=== PATIENT | male | born 1960 | race Hispanic/Latino ===

== ENCOUNTER 2025-05-18 03:56 | Emergency (ER) | payer OTHER ==
[~2025-05-18] VITALS: Ht 188 cm; Wt 211.8 kg
[2025-05-18 04:10] VITALS: BP 160/55; PULSE 88; RESP 14; TEMP 97.6; O2SAT 97
--- NOTE | 2025-05-18 04:41 | ERN ---
General Chief Complaint: Other Problems Stated Complaint: C/O "STOMACH LEAKING FLUID" Time Seen by MD: 04:14 History of Present Illness Initial Comments 64-year-old male who comes in today with a history of atrial fibrillation, hypertension, morbid obesity as he weighs 211 kilos in his BMI 60 comes in with fluid leakage from the abdominal wall. He describes waking him to witnessed in his bed without odor or urine smelling reports he has a occurred before. He acknowledges recent weight gain and increased water intake over 64 oz per day emotional stress related to family circumstances and poor dietary adherence with the past month although he has recently resumed swimming in the mid some dietary changes. No overt signs of infection though he has noted progressive shortness of breath with exertion to which she attributes to deconditioning and body habitus. She has no chest pain fever and new neurological deficits reported. He weighs significantly less than prior peak weight of 750 Allergies: Coded Allergies: No Known Allergies (Unverified Allergy, Unknown, 05/18/25) Past Medical History Past Medical History: Anxiety, Hypertension, Hypothyroid Past Surgical History: Other ROS Dictation Constitutional: Positive for fever chills Eyes: Negative for injury, pain,redness, and discharge ENT: Negative for injury,pain or swelling Cardiovascular: Denies chest pain palpitations Respiratory: Negative for shortness of breath, cough, and wheezing, Abdomen/GI: Abdominal weeping. Back: Negative for injury and pain : Negative for injury, bleeding and discharge MS/Extremity: Negative for injury and deformity Skin: Negative for rash, and discoloration Neuro: Negative for headache, weakness, numbness, tingling, and seizure Psych: Negative for suicide ideation, homicidal ideation, and hallucinations Physical Exam Physical Exam Dictation General: awake, alert, NAD Head/Face: Normocephalic, atraumatic Eyes: PERRL, EOMI, vision at baseline ENT: oral cavity clear, TMs clear, no signs of infection Neck: Trachea midline, supple, no nuchal rigidity Cardiovascular: RRR, normal S1/S2, No MRGs, no JVD Respiratory: CTAB, no respiratory distress, No rales or wheezes Abdomen: Abdominal distention morbid obesity with weeping Skin serous fluid through distended abdomen Skin MS/Extremity: Pulses equal, no cyanosis, neurovascular intact, FROM Neuro: COAx4, GCS 15, strength 5/5, CN 2-12 intact, normal cerebellar exam, norm al gait, Psych: Normal behavior, mood, and affect normal Results Laboratory and Microbiology Lab and Micro Result Laboratory Tests Test 05/18/25 04:37 05/18/25 05:32 White Blood Count 6.6 K/uL (4.8-10.8) Red Blood Count 4.48 MIL/uL (4.50-6.20) L Hemoglobin 14.1 g/dL (14.0-18.0) Hematocrit 40.8 % (42-54) L Mean Corpuscular Volume 91.1 fL (79-99) Mean Corpuscular Hemoglobin 31.5 pg (27.0-33.0) Mean Corpuscular Hemoglobin Concent 34.6 g/dL (32.0-36.0) Red Cell Distribution Width 14.0 % (11.0-15.5) Platelet Count 164 K/uL (130-400) Mean Platelet Volume 9.0 fL (7.5-10.5) Immature Granulocyte % (Auto) 0.3 % (0-1) Neutrophils (%) (Auto) 67.2 % (40.0-77.0) Lymphocytes (%) (Auto) 18.8 % (21.0-51.0) L Monocytes (%) (Auto) 9.5 % (3.0-13.0) Eosinophils (%) (Auto) 3.6 % (0.0-8.0) Basophils (%) (Auto) 0.6 % (0.0-5.0) Neutrophils # (Auto) 4.4 K/uL (1.8-7.7) Lymphocytes # (Auto) 1.2 K/uL (1.0-4.8) Monocytes # (Auto) 0.6 K/uL (0.1-1.0) Eosinophils # (Auto) 0.24 K/uL (0.00-0.70) Basophils # (Auto) 0.04 K/uL (0.00-0.20) Absolute Immature Granulocyte (auto 0.02 K/uL (0-1) Nucleated Red Blood Cells 0.0 % (0.0-0.19) Sodium Level 143 mmol/L (136-145) Potassium Level 3.9 mmol/L (3.5-5.1) Chloride Level 107 mmol/L (101-111) Carbon Dioxide Level 28 mmol/L (21-32) Blood Urea Nitrogen 10 mg/dL (7-18) Creatinine 1.0 mg/dL (0.5-1.3) Glomerular Filtration Rate Calc 85 mL/min (>90) Random Glucose 89 mg/dL (70-105) Hemoglobin A1c 4.7 % (4.0-6.0) Estimated Average Glucose (eAG) 88 mg/dL (70-126) Total Calcium 9.3 mg/dL (8.5-10.1) Total Bilirubin 0.9 mg/dL (0.2-1.0) Aspartate Amino Transf (AST/SGOT) 18 U/L (10-37) Alanine Aminotransferase (ALT/SGPT) 18 U/L (12-78) Alkaline Phosphatase 77 U/L (50-136) B-Type Natriuretic Peptide 100 pg/mL (0-100) Total Protein 7.3 g/dL (6.0-8.3) Albumin 3.5 g/dL (3.5-5.0) Triglycerides Level 25 mg/dL (30-200) L Cholesterol Level 128 mg/dL (<200) LDL Cholesterol 50 mg/dL (0-99) HDL Cholesterol 79 mg/dL (29-71) H Thyroid Stimulating Hormone (TSH) 3.30 uIU/mL (0.36-3.74) Urine Color LIGHT-YELLOW (YELLOW) Urine Appearance CLEAR (CLEAR) Urine pH 5.5 (5.0-8.0) Urine Specific [place] 1.012 (1.001-1.031) Urine Protein NEGATIVE mg/dL (NEGATIVE) Urine Glucose (UA) NEGATIVE mg/dL (NEGATIVE) Urine Ketones NEGATIVE mg/dL (NEGATIVE) Urine Occult Blood NEGATIVE (NEGATIVE) Urine Nitrate NEGATIVE (NEGATIVE) Urine Bilirubin NEGATIVE mg/dL (NEGATIVE) Urine Urobilinogen 0.2 mg/dL (0.2-1.0) Urine Leukocyte Esterase NEGATIVE Julee/uL MDM Mr Amanda labs are reassuring. Patient was given Lasix and told to follow strict sodium and water restriction. Patient is also following up with his primary care doctor MDM: Differential diagnosis: Anasarca Rationale: Tests considered and ordered secondary to shared decision making include: Previous outside records reviewed: Old ER visits. Risk of complication and/or morbidity or mortality of patient management: None Medications-Per medication reconciliation Need for hospitalization: Patient does not meet criteria for hospitalization. Need for emergency major/minor surgery: No There are no social concerns with this patient. Prescription drug management Prescriptions will include symptomatic care Patient's prior external medical records from other ER visits were reviewed by me as indicated. Prior testing and results from previous visits were reviewed. Prior tests were taken into account with medical decision making and resource utilization, independent historian/historians were used to obtain complete medical history. I independently interpreted the test that were performed, results were reviewed by me and considered findings on radiology if ordered. Medical management and examination interpretation discussions were had by me with other qualified healthcare professionals as indicated for the patient's care. ED Course Orders Procedure Category Date Status Time Comprehensive LAB 05/18/25 Complete Metabolic Panel 04:25 B-Type Natriuretic LAB 05/18/25 Complete Peptide 04:25 Thyroid Stimulating LAB 05/18/25 Complete Hormone 04:25 Urinalysis Profile LAB 05/18/25 Complete 04:25 Lipid Panel LAB 05/18/25 Complete 04:25 Hemoglobin A1c LAB 05/18/25 Complete 04:25 Furosemide 40 Mg PHA 05/18/25 Complete Tablet (Lasix 40mg 04:30 Cbc With Differential LAB 05/18/25 Complete 04:37 Current Medications Medications (Trade) Dose Ordered Sig/Minesh Route PRN Reason Start Time Stop Time Status Last Admin Dose Admin Furosemide (LASix 40MG TAB) 60 mg ONCE ONCE PO 05/18/25 04:30 05/18/25 04:45 DC 05/18/25 05:07 Vital Signs Date Time Temp Pulse Resp B/P (MAP) Pulse Ox O2 Delivery O2 Flow Rate FiO2 05/18/25 04:10 97.5 88 14 160/55 97 Room Air* 0 21 05/18/25 04:00 97.2 83 20 163/90 98 Room Air DX & DISP Disposition: Discharge Departure Impression: Primary Impression: Anasarca Condition: Stable Scripts Furosemide (Lasix 40Mg Tab) 40 Mg Tablet 40 MG PO daily for 30 Days, #30 TAB Prov: EDNA SCHULTZ MD 05/18/25 Additional Instructions: Please follow up with your primary care physician. Please limit your salt intake to less than 2 g a day. Limit your fluid to less than 1500 mL a day. EDNA SCHULTZ MD May 18, 2025 04:41
[2025-05-18 04:46] LABS: IMMATURE GRANULOCYTE ABSOLUTE 0.02 K/uL (0-1); NUCLEATED RED BLOOD CELLS 0.0 % (0.0-0.19); PLATELET COUNT (AUTO) 164 K/uL (130-400); RED BLOOD CELL COUNT(AUTO) 4.48 MIL/uL (4.50-6.20); RED CELL DISTRIBUTION WIDTH 14.0 % (11.0-15.5); WHITE BLOOD COUNT (AUTO) 6.6 K/uL (4.8-10.8)
[2025-05-18 04:56] LABS: CREATININE 1.0 mg/dL (0.5-1.3); GLOMERULAR FILTR. RATE CALC 85.0 mL/min (>90); GLUCOSE,RANDOM 89.0 mg/dL (70-105); SODIUM SERUM 143.0 mmol/L (136-145); UREA NITROGEN, BLOOD 10.0 mg/dL (7-18)
[2025-05-18 05:08] LABS: ASPARTATE AMINOTRANSFERASE 18.0 U/L (10-37); LDL DIRECT 50.0 mg/dL (0-99); TOTAL PROTEIN, SERUM 7.3 g/dL (6.0-8.3)
[2025-05-18 06:02] LABS: APPEARANCE,URINE CLEAR (CLEAR); GLUCOSE, URINE (UA) NEGATIVE (NEGATIVE); LEUKOCYTE ESTERASE ,URINE NEGATIVE Leu/uL (NEGATIVE); NITRATE,URINE NEGATIVE (NEGATIVE); OCCULT BLOOD,URINE NEGATIVE (NEGATIVE)
[2025-05-18 06:08] LABS: ADD UA MICROSCOPIC NO
[2025-05-18] MEDS ORDERED: FURO40TA7 PO (06:14)
== END 2025-05-18 06:23 | disposition home or self-care (01) ==
LOC: EDH 03:56
DX: R60.1 Generalized edema (principal); F41.9 Anxiety disorder, unspecified; I10 Essential (primary) hypertension; E03.9 Hypothyroidism, unspecified; E66.01 Morbid (severe) obesity due to excess calories; Z68.44 Body mass index [BMI] 60.0-69.9, adult
CPT/HCPCS: 36415; 80053; 80061; 81003; 83036; 83880; 84443; 85025; 99283

== ENCOUNTER 2025-09-13 08:59 | Emergency (ER) | payer OTHER ==
[~2025-09-13] VITALS: Ht 185.4 cm; Wt 195.0 kg
[~2025-09-13 08:59] MED LIST: FURO40TA7 PO
[2025-09-13 09:08] VITALS: TEMP 98.2
--- NOTE | 2025-09-13 12:37 | HMCIMG ---
EXAM: CR right Hip, 4 View. CLINICAL HISTORY: pain COMPARISON: None provided. FINDINGS: BONES: No acute fracture or aggressive appearing osseous lesion. JOINTS: No dislocation. The joint spaces are normal. SOFT TISSUES: The soft tissues are unremarkable. IMPRESSION: No acute osseous abnormality. /[place]
[2025-09-13] MEDS ORDERED: CYCL5TAB3 PO (12:42)
--- NOTE | 2025-09-13 12:42 | ERN ---
ED Note History of Present Illness Stated Complaint: HIP PAIN Chief Complaint: Hip Pain/Injury Time Seen by MD: 09:15 Dictation: 65-year-old male presents to the emergency department with right hip strain after twisting motion two weeks ago has been worsening no urinary retention or weakness. Allergies: Coded Allergies: No Known Allergies (Unverified Allergy, Unknown, 05/18/25) Home Meds Active Scripts Furosemide (Lasix 40Mg Tab) 40 Mg Tablet, 40 MG PO daily for 30 Days, #30 TAB Prov:EDNA SCHULTZ MD 05/18/25 Past Medical History Past Medical History: A-Fib, Hypertension, Hypothyroid Surgical History: Other Surgical History Other: COLON POLYPS REMOVAL Review of System Dictation Constitutional: Negative for fever,chills, and weight loss Eyes: Negative for injury, pain,redness, and discharge ENT: Negative for injury,pain or swelling Cardiovascular: Negative for chest pain, palpitations, and edema Respiratory: Negative for shortness of breath, cough, and wheezing, Abdomen/GI: Negative for abdominal pain, nausea, vomiting, diarrhea, and constipation Back: Negative for injury and pain : Negative for injury, bleeding and discharge MS/Extremity: . Per HPI Skin: Negative for rash, and discoloration Neuro: Negative for headache, weakness, numbness, tingling, and seizure Psych: Negative for suicide ideation, homicidal ideation, and hallucinations Initial Vital Sign VS Vital Signs Date Time Temp Pulse Resp B/P (MAP) Pulse Ox O2 Delivery O2 Flow Rate FiO2 09/13/25 09:08 98.2 82 18 167/108 98 Room Air Physical Exam Dictation General: awake, alert, NAD Head/Face: Normocephalic, atraumatic Eyes: PERRL, EOMI, vision at baseline ENT: oral cavity clear, TMs clear, no signs of infection Neck: Trachea midline, supple, no nuchal rigidity Cardiovascular: RRR, normal S1/S2, No MRGs, no JVD Respiratory: CTAB, no respiratory distress, No rales or wheezes Abdomen: Soft, non-tender, non-distended, normal bowel sounds, no guarding or rebound. Skin: Warm, dry, normal turgor, no rash MS/Extremity: Pulses equal, no cyanosis, neurovascular intact, FROM Neuro: COAx4, GCS 15, strength 5/5, CN 2-12 intact, normal cerebellar exam, normal gait, Psych: Normal behavior, mood, and affect normal ED Course ED Course Orders Procedure Category Date Status Time Diazepam 5 Mg/Ml 2 Ml PHA 09/13/25 Complete Syg (Valium 5 Mg/M 09:34 Hip Unilat 2-3vw Right RAD 09/13/25 Resulted 09:34 Ketorolac PHA 09/13/25 Complete Tromethamine 30mg/Ml 10:00 Current Medications Medications (Trade) Dose Ordered Sig/Minesh Route PRN Reason Start Time Stop Time Status Last Admin Dose Admin Diazepam (VALium 5 MG/ML 2 ML SYG) 5 mg ONCE STAT IM 09/13/25 09:34 09/13/25 09:38 DC Ketorolac Tromethamine (toRADol) 30 mg ONCE ONCE IM 09/13/25 10:00 09/13/25 10:01 DC Vital Signs Date Time Temp Pulse Resp B/P (MAP) Pulse Ox O2 Delivery O2 Flow Rate FiO2 09/13/25 09:08 98.2 82 18 167/108 98 Room Air Medical Decision Making MDM MDM: Differential diagnosis: Rationale: Tests considered and ordered secondary to shared decision making include: Previous outside records reviewed: Old ER visits. Risk of complication and/or morbidity or mortality of patient management: None Medications-Per medication reconciliation Need for hospitalization: Patient does not meet criteria for hospitalization. Need for emergency major/minor surgery: No There are no social concerns with this patient. Prescription drug management Prescriptions will include symptomatic care Patient's prior external medical records from other ER visits were reviewed by me as indicated. Prior testing and results from previous visits were reviewed. Prior tests were taken into account with medical decision making and resource utilization, independent historian/historians were used to obtain complete medical history. I independently interpreted the test that were performed, results were reviewed by me and considered findings on radiology if ordered. Medical management and examination interpretation discussions were had by me w ith other qualified healthcare professionals as indicated for the patient's care. 65-year-old male with right hip strain x-rays and physical exam were stable, x- ray reviewed interpreted by me no fractures or dislocations noted, given IM Valium and Toradol prescriptions given so for discharge and follow up with his primary care doctor on Friday. DX & DISP Disposition: Discharge Departure Impression: Primary Impression: Strain of right hip Condition: Stable Scripts Cyclobenzaprine HCl (Cyclobenzaprine HCl) 5 Mg Tablet 5 MG PO BID for 5 Days, #10 TAB Prov: DORIS CALI MD 09/13/25 Referrals: MATHIEU VELÁSQUEZ M.D. (PCP) DORIS CALI MD Sep 13, 2025 12:42
--- NOTE | 2025-09-13 12:45 | NUR ---
PT JUST PLACED IN MY ED HALLWAY D1
--- NOTE | 2025-09-13 13:18 | NUR ---
DUE TO MEDICATIONS ADMINISTERED, PT IS TO CALL FAMILY TO COME AND DRIVE HIM HOME TO AVOID ANY POSSIBILITY OF ACCIDENTS D/T MEDICATION EFFECTS
[2025-09-13 13:45] VITALS: BP 145/98; PULSE 93; RESP 17; O2SAT 98
== END 2025-09-13 13:47 | disposition home or self-care (01) ==
LOC: EDH 08:59
DX: S76.011A Strain of muscle, fascia and tendon of right hip, initial encounter (principal); E03.9 Hypothyroidism, unspecified; I10 Essential (primary) hypertension; I48.91 Unspecified atrial fibrillation; Z79.899 Other long term (current) drug therapy; Z86.0100 Personal history of colon polyps, unspecified; X50.1XXA Overexertion from prolonged static or awkward postures, initial encounter; Y93.89 Activity, other specified; Y92.89 Other specified places as the place of occurrence of the external cause; Y99.8 Other external cause status
CPT/HCPCS: 99284; 73502; 96372 ×2; J1885; J3360